=== PATIENT | female | born 1975 | race Hispanic/Latino ===

== ENCOUNTER 2018-06-11 12:23 | Emergency (ER) | payer BC ==
[2018-06-11] MEDS ORDERED: DEXAMETHASONE 4 MG TAB ONE (13:54)
[2018-06-11] MEDS ORDERED: KETOROLAC 30 MG/ML INJ ONE (13:55)
[2018-06-11] MEDS ORDERED: DIAZEPAM 5 MG TABLET ONE (13:55)
[2018-06-11 14:26] LABS: Urine Blood NEGATIVE (NEG); Urine Glucose NEGATIVE (NEG); Urine Protein NEGATIVE (NEG); Urine Specific Gravity <1.005 (1.005-1.030)
--- NOTE | 2018-06-11 15:07 | RAD REPORT ---
EXAM DESCRIPTION: RAD - Lumbar Spine 3 Views - 06/11/2018 3:00 pm CLINICAL HISTORY: Back pain FINDINGS: Minimal posterior subluxation L3 on L4. No fracture or dislocation is seen. Mild spondylosis involves the lumbar spine
--- NOTE | 2018-06-11 15:18 | ER ---
Nurse's Notes [facility] Name: Mandy Barba Age: 42 yrs Sex: Female : 1975 Arrival Date: 06/11/2018 Time: 12:27 Bed 13 Private MD: Dami Whitfield H Diagnosis: Low back pain;Sciatica, unspecified side;Spondylolysis, lumbar region Presentation: 06/11 12:38 Presenting complaint: Patient states: My back started hurting Sunday, I went to urgent tw2 care yesterday and they gave me Tylenol #3, Ibuprofen, and Cyclobenzaprine, but it isnt helping, and i just want to know why i am still hurting, i thought it was my kidneys but it started hurting after yard work on Sunday. pt denies NVD, no urinary frequency/urgency. Transition of care: patient was not received from another setting of care. Onset of symptoms was June 11, 2018. Risk Assessment: Do you want to hurt yourself or someone else? Patient reports no desire to harm self or others. Initial Sepsis Screen: Does the patient meet any 2 criteria? No. Patient's initial sepsis screen is negative. Does the patient have a suspected source of infection? No. Patient's initial sepsis screen is negative. Care prior to arrival: None. 12:38 Method Of Arrival: Ambulatory tw2 12:38 Acuity: JEAN-PIERRE 4 tw2 12:43 Note pt came out of the restroom when called to triage, instructed pt that we would tw2 more than likely need a sample. Triage Assessment: 12:42 General: Appears in no apparent distress. slender, well groomed, Behavior is calm, tw2 cooperative, appropriate for age. Pain: Complains of pain in back. Musculoskeletal: Range of motion: intact in all extremities. 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 tw2 Historical: - Allergies: 12:42 No Known Allergies; tw2 - Home Meds: 12:42 Cymbalta 30 mg oral cpDR 1 cap once daily [Active]; Adderall XR 20 mg Oral cp24 1 cap tw2 once daily [Active]; - PMHx: 12:42 Depression; ADD/ADHD; tw2 - PSHx: 12:42 Breast Augmentation; ; "tummy tuck"; tw2 - Immunization history:: Adult Immunizations. - Social history:: Smoking status: . - Ebola Screening: : Patient denies travel to an Ebola-affected area in the 21 days before illness onset. - Family history:: not pertinent. Screenin:40 Abuse screen: Denies threats or abuse. Nutritional screening: No deficits noted. tw2 Tuberculosis screening: No symptoms or risk factors identified. Fall Risk None identified. Assessment: 12:31 General: Appears in no apparent distress. tw2 14:00 Reassessment: Patient appears in no apparent distress at this time. No changes from tw2 previously documented assessment. Patient and/or family updated on plan of care and expected duration. Pain level reassessed. Patient is alert, oriented x 3, equal unlabored respirations, skin warm/dry/pink. 15:21 Reassessment: Patient appears in no apparent distress at this time. Patient and/or tw2 family updated on plan of care and expected duration. Pain level reassessed. Patient is alert, oriented x 3, equal unlabored respirations, skin warm/dry/pink. Patient states feeling better. Patient states symptoms have improved. 15:22 Neuro: Level of Consciousness is awake, alert, obeys commands, Oriented to person, tw2 place, time, situation. Cardiovascular: Patient's skin is warm and dry. Respiratory: Airway is patent Respiratory effort is even, unlabored, Respiratory pattern is regular, symmetrical. GI: No signs and/or symptoms were reported involving the gastrointestinal system. : No signs and/or symptoms were reported regarding the genitourinary system. Denies burning with urination, pain urinary frequency. EENT: No signs and/or symptoms were reported regarding the EENT system. Derm: No signs and/or symptoms reported regarding the dermatologic system. Musculoskeletal: Circulation, motion, and sensation intact. Range of motion: intact in all extremities. Vital Signs: 12:39 BP 116 / 81; Pulse 85; Resp 17; Temp 97.8(O); Pulse Ox 100% on R/A; Pain 6/10; tw2 14:00 BP 115 / 82; Pulse 79; Resp 17; Pulse Ox 100% on R/A; tw2 15:21 BP 111 / 84; Pulse 76; Resp 17; Pulse Ox 100% on R/A; tw2 12:39 "but i took my meds" tw2 ED Course: 12:27 Patient arrived in ED. rg4 12:28 Dami Whitfield DO is Private Physician. rg4 12:35 Yumiko Cramer, RN is Primary Nurse. tw2 12:38 Bed in low position. Call light in reach. Adult w/ patient. Pulse ox on. NIBP on. tw2 12:39 Triage completed. tw2 12:40 Ant Beckford MD is Attending Physician. [facility] 12:40 Arm band placed on. tw2 13:46 Urine Culture Sent. mh5 14:10 Patient moved to radiology via wheelchair. jb2 14:22 Patient moved back from radiology. jb2 14:42 X-ray completed. Patient tolerated procedure well. jb2 14:45 Lumbar Spine (3 Views) XRAY In Process Unspecified. EDMS 15:17 Dami Whitfield DO is Referral Physician. [facility] 15:29 No provider procedures requiring assistance completed. Patient did not have IV access tw2 during this emergency room visit. Administered Medications: 13:52 Drug: TORadol 60 mg Route: IM; Site: right gluteus; tw2 15:20 Follow up: Response: No adverse reaction; Pain is decreased tw2 13:55 Drug: Decadron 4 mg Route: PO; tw2 15:20 Follow up: Response: No adverse reaction tw2 13:55 Drug: Valium 5 mg Route: PO; tw2 15:20 Follow up: Response: No adverse reaction tw2 Outcome: 15:17 Discharge ordered by . [facility] 15:29 Discharged to home ambulatory, with family. tw2 15:29 Condition: stable 15:29 Discharge instructions given to patient, Instructed on discharge instructions, follow up and referral plans. no drinking with medication, no driving heavy equipment, medication usage, Demonstrated understanding of instructions, follow-up care, medications, Prescriptions given X 3. 15:29 Patient left the ED. tw2 Signatures: Dispatcher [employer] EDIA Ant Beckford MD MD cha Buechter, Jesse 2 Yumiko Cramer, RN RN 2 Modesta Valerio rg4 Deborah Lamb [facility]
--- NOTE | 2018-06-11 15:18 | EDPHYS ---
Physician Documentation [facility] Name: Mandy Barba Age: 42 yrs Sex: Female : 1975 Arrival Date: 06/11/2018 Time: 12:27 Bed 13 Private MD: Dami Whitfield H ED Physician Ant Beckford HPI: 06/11 13:18 This 42 yrs old Female presents to ER via Ambulatory with complaints of Back malissa Pain. 13:18 The patient presents with pain that is acute. The symptoms are located in the low back. malissa Onset: The symptoms/episode began/occurred 3 day(s) ago. The pain does not radiate. Associated signs and symptoms: Pertinent positives: none. The problem was sustained when bending over, when lifting. Modifying factors: The patient symptoms are alleviated by remaining still, the patient symptoms are aggravated by movement, standing, walking. Severity of symptoms: At their worst the symptoms were moderate, in the emergency department the symptoms are unchanged. The patient has not experienced similar symptoms in the past. 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 tw2 Historical: - Allergies: 12:42 No Known Allergies; tw2 - Home Meds: 12:42 Cymbalta 30 mg oral cpDR 1 cap once daily [Active]; Adderall XR 20 mg Oral cp24 1 cap tw2 once daily [Active]; - PMHx: 12:42 Depression; ADD/ADHD; tw2 - PSHx: 12:42 Breast Augmentation; ; "tummy tuck"; tw2 - Immunization history:: Adult Immunizations. - Social history:: Smoking status: . - Ebola Screening: : Patient denies travel to an Ebola-affected area in the 21 days before illness onset. - Family history:: not pertinent. ROS: 13:18 Constitutional: Negative for fever, chills, and weight loss, Eyes: Negative for injury, malissa pain, redness, and discharge, ENT: Negative for injury, pain, and discharge, Neck: Negative for injury, pain, and swelling, Cardiovascular: Negative for chest pain, palpitations, and edema, Respiratory: Negative for shortness of breath, cough, wheezing, and pleuritic chest pain, Abdomen/GI: Negative for abdominal pain, nausea, vomiting, diarrhea, and constipation, : Negative for injury, bleeding, discharge, and swelling, MS/Extremity: Negative for injury and deformity, Skin: Negative for injury, rash, and discoloration, Neuro: Negative for headache, weakness, numbness, tingling, and seizure, Psych: Negative for depression, anxiety, suicide ideation, homicidal ideation, and hallucinations, Allergy/Immunology: Negative for hives, rash, and allergies, Endocrine: Negative for neck swelling, polydipsia, polyuria, polyphagia, and marked weight changes, Hematologic/Lymphatic: Negative for swollen nodes, abnormal bleeding, and unusual bruising. 13:18 Back: Positive for decreased range of motion, pain with movement, of the lumbar area, left low back and right low back. Exam: 13:18 Constitutional: This is a well developed, well nourished patient who is awake, alert, malissa and in no acute distress. Head/Face: Normocephalic, atraumatic. Eyes: Pupils equal round and reactive to light, extra-ocular motions intact. Lids and lashes normal. Conjunctiva and sclera are non-icteric and not injected. Cornea within normal limits. Periorbital areas with no swelling, redness, or edema. ENT: Nares patent. No nasal discharge, no septal abnormalities noted. Tympanic membranes are normal and external auditory canals are clear. Oropharynx with no redness, swelling, or masses, exudates, or evidence of obstruction, uvula midline. Mucous membranes moist. Neck: Trachea midline, no thyromegaly or masses palpated, and no cervical lymphadenopathy. Supple, full range of motion without nuchal rigidity, or vertebral point tenderness. No Meningismus. Chest/axilla: Normal chest wall appearance and motion. Nontender with no deformity. No lesions are appreciated. Cardiovascular: Regular rate and rhythm with a normal S1 and S2. No gallops, murmurs, or rubs. Normal PMI, no JVD. No pulse deficits. Respiratory: Lungs have equal breath sounds bilaterally, clear to auscultation and percussion. No rales, rhonchi or wheezes noted. No increased work of breathing, no retractions or nasal flaring. Abdomen/GI: Soft, non-tender, with normal bowel sounds. No distension or tympany. No guarding or rebound. No evidence of tenderness throughout. Skin: Warm, dry with normal turgor. Normal color with no rashes, no lesions, and no evidence of cellulitis. MS/ Extremity: Pulses equal, no cyanosis. Neurovascular intact. Full, normal range of motion. Neuro: Awake and alert, GCS 15, oriented to person, place, time, and situation. Cranial nerves II-XII grossly intact. Motor strength 5/5 in all extremities. Sensory grossly intact. Cerebellar exam normal. Normal gait. Psych: Awake, alert, with orientation to person, place and time. Behavior, mood, and affect are within normal limits. 13:18 Back: pain, that is mild, ROM is painful, decreased, normal spinal alignment noted, CVA tenderness, is absent, muscle spasm, is appreciated in the left low back and right low back. Vital Signs: 12:39 BP 116 / 81; Pulse 85; Resp 17; Temp 97.8(O); Pulse Ox 100% on R/A; Pain 6/10; tw2 14:00 BP 115 / 82; Pulse 79; Resp 17; Pulse Ox 100% on R/A; tw2 15:21 BP 111 / 84; Pulse 76; Resp 17; Pulse Ox 100% on R/A; tw2 12:39 "but i took my meds" tw2 MDM: 12:40 Patient medically screened. [facility] 06/11 13:45 Order name: Urine Dipstick--Ancillary (enter results); Complete Time: 15:16 06/11 13:18 Order name: Lumbar Spine (3 Views) XRAY; Complete Time: 15:16 [facility] 06/11 13:18 Order name: Urine Dipstick-Ancillary (obtain specimen); Complete Time: 13:46 [facility] 06/11 13:18 Order name: Urine Test (obtain specimen); Complete Time: 13:54 [facility] Administered Medications: 13:52 Drug: TORadol 60 mg Route: IM; Site: right gluteus; tw2 15:20 Follow up: Response: No adverse reaction; Pain is decreased tw2 13:55 Drug: Decadron 4 mg Route: PO; tw2 15:20 Follow up: Response: No adverse reaction tw2 13:55 Drug: Valium 5 mg Route: PO; tw2 15:20 Follow up: Response: No adverse reaction tw2 Disposition: 06/11/18 15:17 Discharged to Home. Impression: Low back pain, Sciatica, unspecified side, Spondylolysis, lumbar region. - Condition is Stable. - Discharge Instructions: Back Pain, Adult, Musculoskeletal Pain, Back Injury Prevention, [id number], Back Pain, Adult, [id number]. - Prescriptions for Dexamethasone 0.5 mg Oral Tablet - take 4 tablet by ORAL route 2 times per day; 32 tablet. Medrol (Vadim) 4 mg Oral Tablets, Dose Pack - take 1 tablet by ORAL route as directed - follow package instructions; 1 packet. Motrin IB 200 mg Oral Tablet - take 2 tablet by ORAL route every 6 hours As needed as needed with food; 30 tablet. - Medication Reconciliation Form, Thank You Letter, Antibiotic Education, Prescription Opioid Use, Work release form form. - Follow up: ; When: 2 - 3 days; Reason: Recheck today's complaints, Continuance of care, Re-evaluation by your physician. - Problem is new. - Symptoms have improved. Signatures: Dispatcher [employer] EDNV Ant Beckford MD MD cha Wise, Tara RN RN tw2 Corrections: (The following items were deleted from the chart) 15:29 15:17 06/11/2018 15:17 Discharged to Home. Impression: Low back pain; Sciatica, tw2 unspecified side; Spondylolysis, lumbar region. Condition is Stable. Discharge Instructions: Back Pain, Adult, Musculoskeletal Pain, Back Injury Prevention, [id number], Back Pain, Adult, [id number]. Prescriptions for Dexamethasone 0.5 mg Oral Tablet - take 4 tablet by ORAL route 2 times per day; 32 tablet, Medrol (Vadim) 4 mg Oral Tablets, Dose Pack - take 1 tablet by ORAL route as directed - follow package instructions; 1 packet, Motrin IB 200 mg Oral Tablet - take 2 tablet by ORAL route every 6 hours As needed as needed with food; 30 tablet. and Forms are Medication Reconciliation Form, Thank You Letter, Antibiotic Education, Prescription Opioid Use. Follow up: ; When: 2 - 3 days; Reason: Recheck today's complaints, Continuance of care, Re-evaluation by your physician. Problem is new. Symptoms have improved. malissa
== END 2018-06-11 15:29 | disposition home or self-care (01) ==
LOC: ER 12:23
DX: M54.30 Sciatica, unspecified side (principal); M47.896 Other spondylosis, lumbar region; F32.9 Major depressive disorder, single episode, unspecified; F90.9 Attention-deficit hyperactivity disorder, unspecified type; Z98.82 Breast implant status
CPT/HCPCS: 72100; 81003; 96372; 99284